=== PATIENT | male | born 1950 | race Caucasian/White ===

== ENCOUNTER → 2024-12-07 | Outpatient (CLI) | payer MEDICARE, OTHER | END | disposition home or self-care (01) | LOC: WOUNDCARE 08:38 | PROVIDERS: ATTEND Nurse Practitioner Family | DX: S80.212A Abrasion, left knee, initial encounter (principal); S80.812A Abrasion, left lower leg, initial encounter; S50.312A Abrasion of left elbow, initial encounter; R60.9 Edema, unspecified; Z98.890 Other specified postprocedural states; Z79.899 Other long term (current) drug therapy; X58.XXXA Exposure to other specified factors, initial encounter; Y93.89 Activity, other specified; Y92.89 Other specified places as the place of occurrence of the external cause; Y99.8 Other external cause status ==

== ENCOUNTER → 2024-12-14 | Outpatient (CLI) | payer MEDICARE, OTHER | END | disposition home or self-care (01) | LOC: WOUNDCARE 01:14 | PROVIDERS: ATTEND Nurse Practitioner Family | DX: S50.312D Abrasion of left elbow, subsequent encounter (principal); S80.212D Abrasion, left knee, subsequent encounter; S80.812D Abrasion, left lower leg, subsequent encounter; X58.XXXD Exposure to other specified factors, subsequent encounter ==

== ENCOUNTER → 2024-12-21 | Outpatient (CLI) | payer MEDICARE, OTHER | END | disposition home or self-care (01) | LOC: WOUNDCARE 00:15 | PROVIDERS: ATTEND Nurse Practitioner Family | DX: S50.312D Abrasion of left elbow, subsequent encounter (principal); S80.212D Abrasion, left knee, subsequent encounter; S80.812D Abrasion, left lower leg, subsequent encounter; R60.9 Edema, unspecified; Z98.890 Other specified postprocedural states; Z79.899 Other long term (current) drug therapy ==